=== PATIENT | male | born 1955 | race Caucasian/White ===

== ENCOUNTER 2017-01-12 21:06 | Emergency (ER) | payer MEDICAID ==
[~2017-01-12] VITALS: Ht 172.7 cm; Wt 95.3 kg
[~2017-01-12 21:06] MED LIST: CLON0.1T PO; CYCL-259 PO; OXYC5CAP4 PO
[2017-01-12] MEDS ORDERED: SODIUM CHLORIDE FLUSH 10ML SYR IVF ONE (22:00)
[2017-01-12] MEDS ORDERED: ONDANSETRON 2MG/ML, 2ML IVPush ONE (22:00)
[2017-01-12] MEDS ORDERED: KETOROLAC 30 MG/1 ML IVPush ONE (22:00)
[2017-01-12] MEDS ORDERED: FAMOTIDINE 20 MG/2 ML IVP ONE (22:00)
[2017-01-12] MEDS ORDERED: SODIUM CHLORIDE 0.9% 1,000ML IVBOLUS ONE (22:00)
[2017-01-12] MEDS ORDERED: KETOROLAC 30 MG/1 ML ONE (22:01)
[2017-01-12] MEDS ORDERED: FAMOTIDINE 20 MG/2 ML ONE (22:02)
[2017-01-12] MEDS ORDERED: ONDANSETRON 2MG/ML, 2ML ONE (22:02)
[2017-01-12 22:18] LABS: HEMOGLOBIN 13.6 g/dL (13.7-18.0)
[2017-01-12 22:29] LABS: ASPARTATE AMINO TRANSFERASE 61 U/L (15-37); BLOOD UREA NITROGEN 11 mg/dL (7-18)
[2017-01-13 00:27] VITALS: BP 142/67
== END 2017-01-13 00:58 | disposition home or self-care (01) ==
LOC: ED 23:59
DX: R10.84 Generalized abdominal pain (principal); R19.7 Diarrhea, unspecified; I10 Essential (primary) hypertension; Z87.891 Personal history of nicotine dependence; Z88.8 Allergy status to other drugs, medicaments and biological substances
CPT/HCPCS: 36415; 74176; 80053; 81003; 83605; 83690; 85025; 85610; 85730; 96361; 96374; 96375; 99285; J1885; J2405; J7030; S0028

== ENCOUNTER 2019-02-27 20:03 | Emergency (ER) | payer MEDICAID ==
[~2019-02-27] VITALS: Ht 172.7 cm; Wt 100.0 kg
[~2019-02-27 20:03] MED LIST changes: -CLON0.1T PO; +CLON0.1T22 PO; +LISI5TAB7 PO; +OXYC5CAP2 PO; -OXYC5CAP4 PO; +SERT100T PO
[2019-02-27 20:23] VITALS: BP 135/81
== END 2019-02-27 21:25 | disposition home or self-care (01) ==
LOC: ED 21:05
DX: S09.8XXA Other specified injuries of head, initial encounter (principal); G89.29 Other chronic pain; M25.532 Pain in left wrist; I10 Essential (primary) hypertension; Z86.19 Personal history of other infectious and parasitic diseases; X58.XXXA Exposure to other specified factors, initial encounter; Y93.89 Activity, other specified; Y92.89 Other specified places as the place of occurrence of the external cause; Y99.8 Other external cause status
CPT/HCPCS: 99283

== ENCOUNTER 2021-03-27 02:50 | Emergency (ER) | payer MEDICAID ==
[~2021-03-27] VITALS: Ht 172.7 cm; Wt 98.0 kg
[~2021-03-27 02:50] MED LIST changes: +AMOX1TAB64 PO; -CYCL-259 PO; +CYCL10TA2 PO; +DOXY-162 PO
[2021-03-27 03:02] VITALS: BP 119/74
== END 2021-03-27 03:57 | disposition home or self-care (01) ==
LOC: ED 03:23
DX: R51.9 Headache, unspecified (principal); F10.10 Alcohol abuse, uncomplicated; Z72.9 Problem related to lifestyle, unspecified; I10 Essential (primary) hypertension; Z87.891 Personal history of nicotine dependence; Z86.19 Personal history of other infectious and parasitic diseases; Y90.0 Blood alcohol level of less than 20 mg/100 ml
CPT/HCPCS: 99283